=== PATIENT | female | born 2000 | race Caucasian/White ===

== ENCOUNTER 2020-04-09 20:50 | Emergency (ER) | payer OTHER, SELFPAY ==
[2020-04-09 20:51] VITALS: BP 163/137; PULSE 111; RESP 16; TEMP 35.9; O2SAT 98; BMI 44.8
--- NOTE | 2020-04-09 20:57 | ED.RN ---
[facility] [phone]
[2020-04-09] MEDS: Ondansetron ODT 4 MG Tablet PO (21:10)
[2020-04-09] MEDS: oxyCODONE 5 MG Tablet PO (21:11)
--- NOTE | 2020-04-09 21:23 | RAD_ITS ---
STUDY: X-RAY - LUMBAR SPINE REASON FOR EXAM: Female, 19 years old. LOW BACK PAIN/ LEFT FLANK PAIN THAT COMES AND GOES. NO KNOWN INJURY. NAUSEA TECHNIQUE: 5 view(s) of the lumbar spine were obtained. COMPARISON: None FINDINGS: Normal lumbar lordosis. There is no significant scoliosis. There is a normal alignment of the vertebrae. Normal vertebral bodies and endplates. Normal disc space heights. There is no demonstrated fracture. The soft tissue structures are unremarkable. RAD/L/S Spine Min 4 Views IMPRESSION: Within normal limits. Electronically Signed: Fox Barrios MD at 21:55 EST , Service support ,
--- NOTE | 2020-04-09 22:39 | ED.VIS.GEN ---
History of Present Illness Chief Complaint: Back Narrative: 19-year-old female presenting with back pain as well as nausea and vomiting. 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 She cannot describe what it is but states that it started to make her vomit. When she started retching her back started hurting worse. She does not have any urinary or GI complaints. She denied fever or chills. She denies any direct trauma. Initially she states she had paresthesias but feels like it is improving. Past Medical History - Allergies and Home Meds Allergies/Adverse Reactions: Allergies amoxicillin Allergy (Verified 04/09/20 20:56) Hives coconut Allergy (Verified 04/09/20 20:56) Hives kiwi Allergy (Verified 04/09/20 20:56) Hives Primary Care Physician: RIGOBERTO GRIGGS [Other] Prior records reviewed: Yes Past Medical History: - - Noncontributory Surgical History: noncontributory Lives: With Family Smoking Status: Never smoker Alcohol: None Drugs: None Review of Systems General: Denies: Chills, Fever, Sweats Eyes: Denies: Visual changes - bilaterally, Diplopia ENT: Denies: Rhinorrhea, Sore throat Cardiovascular: Denies: Chest pain, Palpitations Respiratory: Denies: Dyspnea, Cough, Dyspnea on exertion Gastrointestinal: Denies: Abdominal pain, Nausea, Vomiting, Diarrhea, Melena, Hematochezia Genitourinary: Denies: Dysuria, Hematuria, Frequency Musculoskeletal: Reports: Back pain. Denies: Swelling Skin: Denies: Rash, Wounds Neurological: Denies: Headache, Weakness, Numbness Psych: Denies: Depression, Anxiety Physical Exam Vital Signs/Narrative: Vital Signs Temp Pulse Resp BP Pulse Ox 04/09/20 20:51 96.7 F L 111 H 16 163/137 H 98 General: Well nourished, No Acute Distress Head: Normocephalic, Atraumatic Eyes: Perrl, EOMI ENT: Moist mucous membranes, No rhinorrhea Cardiovascular: Regular rate, Regular rhythm, No murmurs Respiratory: No distress, CTA bilaterally, Chest nontender Back: - - Right lumbar paraspinal muscular tenderness.. Negative for: Spinal tenderness Extremities: Nontender, No edema, - - Patient has 5/5 strength and sensation of bilateral lower extremities. Skin: Normal color, No rash Neurological: Alert, Oriented x3 Psychological: Normal affect, Normal Mood Diagnostic/Tx/Re-eval Clinical Impression(s) from Imaging Studies Lumbar Spine X-Ray 04/09/20 21:23 IMPRESSION: Within normal limits. Electronically Signed: Fox Barrios MD at 21:55 EST , Service support , - Medical Decision Making Patient seen and evaluated on arrival for back pain as well as nausea and vomiting. She was given oxycodone and Zofran which did help her nausea and pain respectively. She had x-ray of the lumbar spine which was negative. On reevaluation she is feeling improved. Patient was discharged home with Flexeril and is counseled to use [id number] NSAIDs. Impression: 1. Lumbar strain ED Disposition - Plan for ED Patient: Disposition: Home or Assisted Living Instructions: ED Back Sprain/Strain, ED Diet for Vomiting or Diarrhea Adult Prescriptions: Cyclobenzaprine HCl 10 mg PO Q8H PRN PRN #20 tab PRN Reason: Pain Prescription Printed predniSONE tablet 60 mg PO DAILY #9 tab Prescription Printed Referrals: RIGOBERTO GRIGGS [Other]
[2020-04-09] MEDS: predniSONE 20 MG Tablet 60 MG PO (22:46)
[2020-04-09 22:48] VITALS: BP 153/93; PULSE 80; RESP 15
== END 2020-04-09 22:57 | disposition home or self-care (01) ==
PROVIDERS: Emergency Provider Student in an Organized Health Care Education/Training Program
DX: S39.012A Strain of muscle, fascia and tendon of lower back, initial encounter (principal); R11.0 Nausea; X58.XXXA Exposure to other specified factors, initial encounter; Y93.9 Activity, unspecified; Y92.9 Unspecified place or not applicable
CPT/HCPCS: 72110; 99283